=== PATIENT | male | born 1965 | race Caucasian/White ===

== ENCOUNTER 2016-08-10 14:25 | Emergency (ER) | payer OTHER ==
[~2016-08-10] VITALS: Ht 182.8 cm; Wt 97.5 kg
--- NOTE | ~2016-08-10 | EKG ---
[place], [place] ELECTROCARDIOGRAM REPORT NAME: MYLES RAINEY UNIT #: [id number] ROOM: DOCTOR: JOESPH MAGALLANES MD BIRTHDATE: [birth year] DOS: 08/10/2016 TIME: 1515 hours. FINDINGS: 1. Normal sinus rhythm at 72 beats per minute. 2. The tracing is normal. 3. No previous tracing is available for comparison. JOESPH MAGALLANES MD CM:EKGRPT:ELECTROCARDIOGRAM REPORT [id number] JOESPH MAGALLANES MD
[~2016-08-10 14:25] MED LIST: ALBUTEROL0.09 MG/A2 INH; CIPROFLOXACIN500 MG PO; FLAGYL500 MG PO; MELOXICAM15 MG PO; PERCOCET 325 MG1 TA7 PO; PRILOSEC20 MG PO
[2016-08-10 15:17] LABS: BASO # 0.1 10*3/uL (0.0-0.1); BASO % 0.8 % (0.0-1.0); EOS # 0.4 10*3/uL (0.0-0.4); EOS % 3.2 % (1.0-4.0); HEMATOCRIT 46.1 % (42.0-52.0); HEMOGLOBIN 15.6 g/dl (14.0-18.0); LYMPH # 2.7 10*3/uL (1.3-4.4); LYMPH % 23.5 % (27.0-41.0); MEAN CORPUSCULAR HGB 30.5 pg (27.0-31.0); MEAN CORPUSCULAR HGB CONC 33.8 g/dl (33.0-37.0); MONO % 9.1 % (3.0-9.0); NEUT # 7.3 10*3/uL (2.3-7.9); NEUT % 63.2 % (47.0-73.0); PLATELET COUNT AUTOMATED 291 10*3/uL (130-400); RED BLOOD COUNT 5.12 10*6/uL (4.50-5.90); RED CELL DISTRI WIDTH 12.5 % (0-14.5); WHITE BLOOD COUNT 11.5 10*3/uL (4.8-10.8)
[2016-08-10 15:37] LABS: ALBUMIN 3.7 gm/dl (3.1-4.5); ALKALINE PHOSPHATASE 76 U/L (45-117); BILIRUBIN, TOTAL 0.3 mg/dl (0.2-1.0); BUN 6 mg/dl (7-24); CARBON DIOXIDE 26 mmol/L (21-32); CHLORIDE 108 mmol/L (98-107); EST GLOM FILT AFRICAN AMERICAN > 60 ml/min; GLUCOSE 86 mg/dL (65-99); POTASSIUM 4.2 mmol/L (3.5-5.1); SGOT/AST 36 IU/L (3-35); SGPT/ALT 64 U/L (12-78); SODIUM 144 mmol/L (136-145); TOTAL PROTEIN 7.4 gm/dL (6.4-8.2)
[2016-08-10 15:39] LABS: TROPONIN I < 0.015 ng/ml (<0.045)
[2016-08-10] MEDS ORDERED: ROBITUSSIN AC 110 ML PO (16:28)
[2016-08-10] MEDS ORDERED: PREDNISONE10 MG PO ×2 (16:28→16:30)
[2016-08-10] MEDS ORDERED: FLONASE ALLERG9.9 ML NAS (16:28)
[2016-08-10] MEDS ORDERED: CLARITIN10 MG PO (16:28)
== END 2016-08-10 16:56 | disposition home or self-care (01) ==
LOC: ED 14:25
PROVIDERS: Nurse Practitioner Family
DX: J20.9 Acute bronchitis, unspecified (principal); R03.0 Elevated blood-pressure reading, without diagnosis of hypertension; F17.200 Nicotine dependence, unspecified, uncomplicated; Z79.899 Other long term (current) drug therapy